=== PATIENT | male | born 1955 | race Hispanic/Latino ===

== ENCOUNTER → 2020-03-26 | Outpatient (CLI) | payer BC ==
--- NOTE | 2020-03-26 15:56 | Diagnostic Imaging Report ---
Radiographs of the cervical spine - 5 views with bilateral obliques HISTORY: Pain. COMPARISON: None available. FINDINGS: Bones: No acute displaced fracture. Osseous alignment is within normal limits. Joints: Scattered degenerative change most pronounced from C4/5 through C6/7. There is associated uncovertebral hypertrophy and facet arthrosis with mild bilateral neural foraminal narrowing at these levels. Soft tissues: The soft tissues appear unremarkable. IMPRESSION: Scattered degenerative change most pronounced from C4/5 through C6/7. There is associated uncovertebral hypertrophy and facet arthrosis with mild bilateral neural foraminal narrowing at these levels. Signed by: Dr. Fausto Stewart M.D. on 03/26/2020 3:52 PM
== END ==
LOC: RAD 13:19
PROVIDERS: ATTEND Internal Medicine
DX: M43.02 Spondylolysis, cervical region (principal); G45.1 Carotid artery syndrome (hemispheric)
CPT/HCPCS: 72050

== ENCOUNTER → 2020-04-04 | Outpatient (CLI) | payer BC ==
--- NOTE | 2020-04-04 09:19 | Diagnostic Imaging Report ---
History: Numbness Comparison studies: None Technique: Axial images were obtained from the skull base to the vertex. Coronal and sagittal reconstructions obtained from the axial data. Dose modulation, iterative reconstruction, and/or weight based adjustment of the mA/kV was utilized to reduce the radiation dose to as low as reasonably achievable. Findings: Scalp/skull: No abnormalities. No fractures, blastic or lytic lesions. Extra-axial spaces: No masses. No fluid collections. Brain sulci: Appropriate for age. Ventricles: Normal in size and configuration. No hydrocephalus. Parenchyma: No abnormal densities. No masses, hemorrhage, acute or chronic cortical vascular insults. Sellar/suprasellar region: No abnormalities Craniocervical junction: Patent foramen magnum. No Chiari one malformation. Mild atherosclerotic calcifications of the carotid siphons and vertebral arteries IMPRESSION: No acute abnormalities . Signed by: DR Tone Torres M.D. on 04/04/2020 9:16 AM
== END ==
LOC: CT 07:41
PROVIDERS: ATTEND Internal Medicine
DX: G45.1 Carotid artery syndrome (hemispheric) (principal); M43.02 Spondylolysis, cervical region
CPT/HCPCS: 70450

== ENCOUNTER → 2020-04-16 | Outpatient (CLI) | payer BC ==
--- NOTE | 2020-04-16 11:27 | Diagnostic Imaging Report ---
MRI SPINE CERVICAL WO HISTORY: Right arm pain, cervical spondylosis COMPARISON: Cervical spine radiographs 03/26/2020; report from MRI of the cervical spine dated 07/29/2011 TECHNIQUE: Sagittal T1, sagittal T2, sagittal inversion recovery, axial T2, axial GRE, and axial T1 weighted MR images of the cervical spine were obtained without intravenous contrast. DISCUSSION: Alignment: Normal lordosis. No scoliosis. Vertebrae: No definite evidence for fractures, infection, or neoplasm. Cervicomedullary junction: No abnormalities. Spinal cord: Normal in signal and morphology from the foramen magnum through T4. Soft tissues: No signal abnormalities. Moderate multilevel disc degeneration is most prominent at C5-C6 and C6-C7. The C5 and C6 vertebral bodies are partially fused. C2-C3: Patent canal and foramina. C3-C4: Moderate canal stenosis due to posterior disc osteophyte complex and ligamentum flavum thickening. Moderate to severe right and mild left foraminal stenoses due to uncovertebral and facet arthrosis. C4-C5: Moderate canal stenosis due to posterior disc osteophyte complex and ligamentum flavum thickening. Moderate to severe bilateral foraminal stenoses due to uncovertebral and facet arthrosis. C5-C6: Mild canal stenosis due to posterior disc osteophyte complex. No significant foraminal stenosis. C6-C7: Mild bilateral foraminal stenoses due to uncovertebral and facet arthrosis. No significant canal stenosis. C7-T1: Grade 1 anterolisthesis of C7 on T1 due to facet arthrosis. Moderate bilateral foraminal stenoses due to uncovertebral and facet arthrosis. IMPRESSION: 1. Moderate multilevel cervical disc degeneration, most prominent at C5-C6 and C6-C7. The C5 and C6 vertebral bodies are partially fused. 2. Moderate degenerative canal stenoses at C3-C4 and C4-C5. 3. Multilevel degenerative foraminal stenoses - moderate to severe on the right at C3-C4; moderate to severe bilaterally at C4-C5; moderate bilaterally at C7-T1. Signed by: Dr. Alvino Rubio M.D. on 04/16/2020 11:24 AM
== END ==
LOC: MRI 09:38
PROVIDERS: ATTEND Internal Medicine
DX: M43.02 Spondylolysis, cervical region (principal)
CPT/HCPCS: 72141